=== PATIENT | male | born 1955 | race Caucasian/White ===

== ENCOUNTER 2018-04-01 14:09 | Emergency (ER) | payer MEDICARE, MEDICAID ==
[~2018-04-01] VITALS: Ht 172.7 cm; Wt 85.0 kg
[2018-04-01] MEDS ORDERED: CALC-1038 PO (14:20)
[2018-04-01] MEDS ORDERED: MIRT15 PO (14:20)
[2018-04-01] MEDS ORDERED: ALBU8HFA IH (14:20)
[2018-04-01] MEDS ORDERED: FLUO-191 PO (14:20)
[2018-04-01] MEDS ORDERED: RISP3 PO (14:20)
[2018-04-01] MEDS ORDERED: LINA145C PO (14:20)
[2018-04-01] MEDS ORDERED: APIX5TAB PO (14:20)
[2018-04-01] MEDS ORDERED: LURA80 PO (14:20)
[2018-04-01] MEDS ORDERED: BENZ1TAB10 PO (14:20)
[2018-04-01] MEDS ORDERED: QUET100T PO (14:20)
[2018-04-01] MEDS ORDERED: ACETAMINOPHEN 500 MG TABLET PO ONE (15:00)
[2018-04-01] MEDS ORDERED: DIPHENOXYLATE/ATROP 2.5-0.025 MG TABLET PO ONE (15:00)
[2018-04-01] MEDS ORDERED: SODIUM CHLORIDE 0.9% 1,000 ML IV ONE (15:00)
[2018-04-01] MEDS ORDERED: MAG HYDROX/AL HYDROX/SIMETH ES 30 ML SUSPENSION UDCUP PO ONE (15:00)
[2018-04-01] MEDS ORDERED: ONDANSETRON HCL 4 MG/2 ML VIAL IVP ONE (15:00)
[2018-04-01 15:59] LABS: BASOPHILS % (AUTO) 0.3 % (0.0-2.0); EOSINOPHILS % (AUTO) 0 % (1.0-6.0); HEMATOCRIT 48.8 % (41-53); HEMOGLOBIN 16.6 g/dL (13.5-17.5); LYMPHOCYTES # (AUTO) 0.5 K/uL (1.0-4.8); LYMPHOCYTES % (AUTO) 4.5 % (22.0-44.0); MEAN CORPUSCULAR HEMOGLOBIN 33.1 pg (26.0-34.0); MEAN CORPUSCULAR VOLUME 97 fL (80-100); MONOCYTES # (AUTO) 0.4 K/uL (0.1-1.0); MONOCYTES % (AUTO) 3.7 % (2.0-9.0); NEUTROPHILS # (AUTO) 10.4 K/uL (1.8-7.7); RED BLOOD CELL COUNT(AUTO) 5.01 MIL/uL (4.50-5.90); RED CELL DISTRIBUTION WIDTH 13.7 % (11.5-14.5)
[2018-04-01 16:00] LABS: NEUTROPHILS % (AUTO) 91.5 % (40.0-70.0)
[2018-04-01 16:25] LABS: PLATELET COUNT (AUTO) 110 K/uL (150-450)
[2018-04-01 16:37] LABS: ANION GAP 5 mmol/L (8-16); CALCIUM, TOTAL 8.9 mg/dL (8.8-10.5); CARBON DIOXIDE 33 mmol/L (22-29); CHLORIDE 104 mmol/L (98-107); CREATININE 0.86 mg/dL (0.60-1.30); GLOMERULAR FILTR. RATE CALC > 60 mL/min (>60); GLUCOSE,RANDOM 121 mg/dL (70-110); POTASSIUM 3.8 mmol/L (3.5-5.1); SODIUM SERUM 142 mmol/L (136-145); UREA NITROGEN, BLOOD 19 mg/dL (7-18)
[2018-04-01 16:44] LABS: ALANINE AMINOTRANSFERASE 17 U/L (12-78); ALBUMIN 3.7 g/dL (3.4-5.0); ALKALINE PHOSPHATASE 93 U/L (46-116); ASPARTATE AMINOTRANSFERASE 14 U/L (15-37); BILIRUBIN,TOTAL 0.5 mg/dL (0.1-1.0); LIPASE 84 U/L (73-393)
[2018-04-01 17:02] VITALS: BP 134/69
== END 2018-04-01 17:59 | disposition home or self-care (01) ==
LOC: EMS 14:11
DX: K52.9 Noninfective gastroenteritis and colitis, unspecified (principal); L30.9 Dermatitis, unspecified; F20.9 Schizophrenia, unspecified; F41.9 Anxiety disorder, unspecified; F31.9 Bipolar disorder, unspecified; I51.9 Heart disease, unspecified; Z79.899 Other long term (current) drug therapy
CPT/HCPCS: 36415; 80053; 83690; 84484; 85025; 93005; 96361; 96374; 99285; J2405; J7030

== ENCOUNTER 2018-10-17 12:20 | Inpatient (IN) | payer MEDICARE, MEDICAID ==
[~2018-10-17] VITALS: Ht 188 cm; Wt 93.2 kg
[~2018-10-17 12:20] MED LIST: ALBU8HFA IH; APIX5TAB PO; BENZ1TAB10 PO; CALC-1038 PO; FLUO-191 PO; LINA145C PO; LURA80 PO; MIRT15 PO; QUET100T PO; RISP3 PO
[2018-10-17] MEDS ORDERED: QUEtiapine FUMARATE 100 MG TABLET PO PRN (12:45)
[2018-10-17] MEDS ORDERED: PROMETHAZINE HCL 25 MG TABLET PO PRN (12:45)
[2018-10-17] MEDS ORDERED: GuaiFENesin/D-METHORPHAN [SUGAR-FREE] 200-20MG/10 ML SYRUP UDCUP PO PRN (12:45)
[2018-10-17] MEDS ORDERED: LORazepam 1 MG TABLET PO PRN (12:45)
[2018-10-17] MEDS ORDERED: MAG HYDROX/AL HYDROX/SIMETH ES 30 ML SUSPENSION UDCUP PO PRN (12:45)
[2018-10-17] MEDS ORDERED: HydrOXYzine PAMOATE 50 MG CAPSULE PO PRN (12:45)
[2018-10-17] MEDS ORDERED: ZOLPIDEM TARTRATE 10 MG TABLET PO PRN (12:45)
[2018-10-17] MEDS ORDERED: MAGNESIUM HYDROXIDE SUSPENSION 30 ML UDCUP PO PRN (12:45)
[2018-10-17] MEDS ORDERED: TUBERCULIN, PURIFIED PROTEIN DERIVATIVE 5 TU/0.1 ML SYRINGE ID ONE (12:45)
[2018-10-17] MEDS ORDERED: LOPERAMIDE HCL 2 MG CAPSULE PO PRN (12:45)
[2018-10-17 13:19] VITALS: BP 123/76
[2018-10-17 14:30] VITALS: BP 129/95
[2018-10-17 16:38] VITALS: BP 122/77
[2018-10-17] MEDS: THIAMINE HCL 100 MG TABLET PO SCH (16:38)
[2018-10-17] MEDS: ACETAMINOPHEN 325 MG TABLET PO PRN (16:38)
[2018-10-17 16:50] VITALS: BP 122/77
[2018-10-17] MEDS ORDERED: ALBUTEROL SULFATE HFA 90 MCG/PUFF 8 GM INHALER IH PRN (19:00)
[2018-10-17] MEDS: MIRTAZAPINE 15 MG TABLET PO SCH (20:14)
[2018-10-17] MEDS ORDERED: QUEtiapine FUMARATE 200 MG TABLET PO SCH (21:00)
[2018-10-18 05:46] VITALS: BP 141/87
[2018-10-18] MEDS: LINACLOTIDE 145 MCG CAPSULE PO SCH (06:37)
[2018-10-18 08:11] VITALS: BP 138/68
[2018-10-18] MEDS: FOLIC ACID 1 MG TABLET PO SCH (08:26)
[2018-10-18] MEDS: MULTIVITAMINS WITH MINERALS, THERAPEUTIC TABLET PO SCH (08:26)
[2018-10-18] MEDS: APIXABAN 5 MG TABLET PO SCH ×2 (08:26→16:37)
[2018-10-18] MEDS: CALCIUM OYSTER SHELL 500 MG TABLET PO SCH (08:26)
[2018-10-18] MEDS: THIAMINE HCL 100 MG TABLET PO SCH ×2 (08:26→16:37)
[2018-10-18 08:45] LABS: BASOPHILS % (AUTO) 0.5 % (0.0-2.0); HEMATOCRIT 46.9 % (41-53); HEMOGLOBIN 15.4 g/dL (13.5-17.5); LYMPHOCYTES % (AUTO) 20.9 % (22.0-44.0); MEAN CORPUSCULAR HEMOGLOBIN 32.4 pg (26.0-34.0); MEAN CORPUSCULAR HGB CONC 32.8 G/dL (31.0-37.0); MEAN CORPUSCULAR VOLUME 99 fL (80-100); MONOCYTES # (AUTO) 0.4 K/uL (0.1-1.0); MONOCYTES % (AUTO) 8.3 % (2.0-9.0); NEUTROPHILS # (AUTO) 3.2 K/uL (1.8-7.7); NEUTROPHILS % (AUTO) 65.3 % (40.0-70.0); PLATELET COUNT (AUTO) 116 K/uL (150-450); RED BLOOD CELL COUNT(AUTO) 4.75 MIL/uL (4.50-5.90); RED CELL DISTRIBUTION WIDTH 14.4 % (11.5-14.5)
[2018-10-18 09:00] LABS: HEMOGLOBIN A1C 5.8 % (4.5-6.2)
[2018-10-18] MEDS ORDERED: FLUoxetine HCL 20 MG CAPSULE PO SCH (09:00)
[2018-10-18 09:16] LABS: ALANINE AMINOTRANSFERASE 9 U/L (12-78); ALBUMIN 3.1 g/dL (3.4-5.0); ALKALINE PHOSPHATASE 77 U/L (46-116); ANION GAP 5 mmol/L (8-16); ASPARTATE AMINOTRANSFERASE 7 U/L (15-37); BILIRUBIN,TOTAL 0.2 mg/dL (0.1-1.0); CALCIUM, TOTAL 8.5 mg/dL (8.8-10.5); CARBON DIOXIDE 31 mmol/L (22-29); CHLORIDE 106 mmol/L (98-107); CHOL/HDL RATIO 2.5 (4.2-7.3); CHOLESTEROL 94 mg/dL (131-200); CREATININE 0.71 mg/dL (0.60-1.30); FREE T4 (FREE THYROXINE) 0.95 ng/dL (0.76-1.46); GLOMERULAR FILTR. RATE CALC > 60 mL/min (>60); GLUCOSE,RANDOM 91 mg/dL (70-110); HDL CHOLESTEROL 37 mg/dL (40-60); LDL CHOL (CALC.) 48 mg/dL (0-130); SODIUM SERUM 142 mmol/L (136-145); TOTAL PROTEIN, SERUM 6.1 g/dL (6.4-8.2); TRIGLYCERIDES 44 mg/dL (15-150); UREA NITROGEN, BLOOD 14 mg/dL (7-18)
[2018-10-18] MEDS: FUROSEMIDE 20 MG TABLET PO SCH (11:00)
[2018-10-18 16:22] VITALS: BP 124/70
[2018-10-18] MEDS: MIRTAZAPINE 15 MG TABLET PO SCH (20:35)
[2018-10-18] MEDS ORDERED: QUEtiapine FUMARATE 300 MG TABLET PO SCH (21:00)
[2018-10-19 02:15] VITALS: BP 122/72
[2018-10-19] MEDS: LINACLOTIDE 145 MCG CAPSULE PO SCH (06:31)
[2018-10-19 08:12] VITALS: BP 116/67
[2018-10-19] MEDS: APIXABAN 5 MG TABLET PO SCH ×2 (08:23→16:41)
[2018-10-19] MEDS: CALCIUM OYSTER SHELL 500 MG TABLET PO SCH (08:23)
[2018-10-19] MEDS: MULTIVITAMINS WITH MINERALS, THERAPEUTIC TABLET PO SCH (08:23)
[2018-10-19] MEDS: FUROSEMIDE 20 MG TABLET PO SCH (08:23)
[2018-10-19] MEDS: ACETAMINOPHEN 325 MG TABLET PO PRN (08:23)
[2018-10-19] MEDS: FOLIC ACID 1 MG TABLET PO SCH (08:23)
[2018-10-19] MEDS: THIAMINE HCL 100 MG TABLET PO SCH ×2 (08:23→16:41)
[2018-10-19] MEDS: FLUoxetine HCL 20 MG CAPSULE PO SCH (08:23)
[2018-10-19 16:06] VITALS: BP 136/72
[2018-10-19] MEDS: MIRTAZAPINE 15 MG TABLET PO SCH (20:33)
[2018-10-19] MEDS: QUEtiapine FUMARATE 200 MG TABLET PO SCH (20:34)
[2018-10-20] MEDS: LINACLOTIDE 145 MCG CAPSULE PO SCH (06:03)
[2018-10-20 06:58] VITALS: BP 122/72
[2018-10-20 08:20] VITALS: BP 114/68
[2018-10-20] MEDS: FOLIC ACID 1 MG TABLET PO SCH (08:33)
[2018-10-20] MEDS: FUROSEMIDE 20 MG TABLET PO SCH (08:33)
[2018-10-20] MEDS: APIXABAN 5 MG TABLET PO SCH ×2 (08:33→16:37)
[2018-10-20] MEDS: THIAMINE HCL 100 MG TABLET PO SCH ×2 (08:33→16:37)
[2018-10-20] MEDS: FLUoxetine HCL 20 MG CAPSULE PO SCH (08:33)
[2018-10-20] MEDS: MULTIVITAMINS WITH MINERALS, THERAPEUTIC TABLET PO SCH (08:33)
[2018-10-20] MEDS: CALCIUM OYSTER SHELL 500 MG TABLET PO SCH (08:33)
[2018-10-20 08:52] LABS: MAGNESIUM 2.2 mg/dL (1.80-2.40)
[2018-10-20 08:58] LABS: ALANINE AMINOTRANSFERASE 10 U/L (12-78); ALBUMIN 3.5 g/dL (3.4-5.0); ALKALINE PHOSPHATASE 87 U/L (46-116); ANION GAP 7 mmol/L (8-16); ASPARTATE AMINOTRANSFERASE 10 U/L (15-37); BILIRUBIN,TOTAL 0.5 mg/dL (0.1-1.0); CALCIUM, TOTAL 8.9 mg/dL (8.8-10.5); CARBON DIOXIDE 31 mmol/L (22-29); CHLORIDE 105 mmol/L (98-107); CREATININE 0.68 mg/dL (0.60-1.30); GLOMERULAR FILTR. RATE CALC > 60 mL/min (>60); GLUCOSE,RANDOM 83 mg/dL (70-110); POTASSIUM 3.9 mmol/L (3.5-5.1); SODIUM SERUM 143 mmol/L (136-145); TOTAL PROTEIN, SERUM 6.9 g/dL (6.4-8.2); UREA NITROGEN, BLOOD 19 mg/dL (7-18)
[2018-10-20 09:01] LABS: B-TYPE NATRIURETIC PEPTIDE 33 pg/mL (0-100)
[2018-10-20] MEDS ORDERED: FLUO-191 PO ×2 (14:19→22:04)
[2018-10-20] MEDS ORDERED: QUET200T29 PO (14:19)
[2018-10-20] MEDS ORDERED: MIRT15 PO (14:19)
[2018-10-20 16:00] VITALS: BP 118/70
[2018-10-20] MEDS: QUEtiapine FUMARATE 200 MG TABLET PO SCH (20:34)
[2018-10-20] MEDS: MIRTAZAPINE 15 MG TABLET PO SCH (20:34)
[2018-10-20] MEDS ORDERED: MIRT30 PO (22:04)
[2018-10-20] MEDS ORDERED: QUET200T PO (22:04)
[2018-10-21 05:00] VITALS: BP 117/71
[2018-10-21] MEDS: LINACLOTIDE 145 MCG CAPSULE PO SCH (06:38)
[2018-10-21] MEDS ORDERED: OS500 PO (07:44)
[2018-10-21] MEDS ORDERED: FURO20 PO (07:44)
[2018-10-21 08:09] VITALS: BP 106/67
[2018-10-21] MEDS: APIXABAN 5 MG TABLET PO SCH (08:31)
[2018-10-21] MEDS: FOLIC ACID 1 MG TABLET PO SCH (08:31)
[2018-10-21] MEDS: FUROSEMIDE 20 MG TABLET PO SCH (08:31)
[2018-10-21] MEDS: FLUoxetine HCL 20 MG CAPSULE PO SCH (08:31)
[2018-10-21] MEDS: CALCIUM OYSTER SHELL 500 MG TABLET PO SCH (08:31)
[2018-10-21] MEDS: MULTIVITAMINS WITH MINERALS, THERAPEUTIC TABLET PO SCH (08:31)
[2018-10-21] MEDS: THIAMINE HCL 100 MG TABLET PO SCH (08:31)
== END 2018-10-21 13:25 | disposition home or self-care (01) | DRG 885 ==
LOC: B2X 14:22
PROVIDERS: ADMIT Psychiatry & Neurology Psychiatry; ATTEND Psychiatry & Neurology Psychiatry
DX: F25.9 Schizoaffective disorder, unspecified (principal); R45.851 Suicidal ideations; F17.210 Nicotine dependence, cigarettes, uncomplicated; F32.9 Major depressive disorder, single episode, unspecified; F41.9 Anxiety disorder, unspecified; F60.0 Paranoid personality disorder; I10 Essential (primary) hypertension; I25.10 Atherosclerotic heart disease of native coronary artery without angina pectoris; J44.9 Chronic obstructive pulmonary disease, unspecified; K58.9 Irritable bowel syndrome, unspecified; N40.0 Benign prostatic hyperplasia without lower urinary tract symptoms; Z59.0 Homelessness; Z65.3 Problems related to other legal circumstances; Z79.01 Long term (current) use of anticoagulants; Z89.411 Acquired absence of right great toe; Z91.19 Patient's noncompliance with other medical treatment and regimen; D69.6 Thrombocytopenia, unspecified; F70 Mild intellectual disabilities
CPT/HCPCS: 80074; 83036; 83735; 84439; 84443; 86592; 93306; J3535